=== PATIENT | male | born 2000 | race Caucasian/White ===

== ENCOUNTER 2018-05-03 14:51 | Emergency (ER) | payer MEDICAID ==
--- NOTE | 2018-05-03 16:17 | EDM.PDOC ---
ED HPI GENERAL MEDICAL PROBLEM - General Chief Complaint: Laceration Stated Complaint: CUT ON RIGHT FOOT Time Seen by Provider: 05/03/18 16:00 Source of Information: Reports: Patient History Limitations: Reports: No Limitations - History of Present Illness INITIAL COMMENTS - FREE TEXT/NARRATIVE: 17-year-old male sustained a small laceration on the inside of his right foot 36 hours ago, now feels like his right lower leg is swollen and warm, also thinks there is some erythema on the lateral aspect of the calf. No fevers or chills. No nausea or vomiting, shortness of breath or other symptoms. Severity: Mild Associated Symptoms: Denies: Fever/Chills, Loss of Appetite, Malaise, Nausea/ Vomiting, Shortness of Breath, Weakness - Related Data Allergies Allergy/AdvReac Type Severity Reaction Status Date / Time mushroom Allergy Nausea and Verified 05/03/18 15:59 Vomiting pollen extracts Allergy Cannot Verified 05/03/18 15:59 Remember Home Meds: Home Meds NK [No Known Home Meds] 04/18/18 [History] Past Medical History Psychiatric History: Reports: Depression, Suicidal Ideation - Infectious Disease History Infectious Disease History: Reports: Meningitis Social & Family History - Tobacco Use Smoking Status *Q: Current Every Day Smoker Years of Tobacco use: 8 Packs/Tins Daily: 0.5 - Caffeine Use Caffeine Use: Reports: Coffee, Energy Drinks, Soda - Recreational Drug Use Recreational Drug Use: Yes Recreational Drug Type: Reports: Marijuana/Hashish Recreational Drug Use Frequency: Not Used In Over 6 Months ED ROS GENERAL - Review of Systems Review Of Systems: See Below Constitutional: Denies: Fever, Chills Respiratory: Denies: Shortness of Breath, Cough Cardiovascular: Denies: Chest Pain GI/Abdominal: Denies: Abdominal Pain, Nausea, Vomiting : Reports: No Symptoms Skin: Reports: Erythema Neurological: Denies: Paresthesia ED EXAM, SKIN/RASH Exam: See Below Exam Limited By: No Limitations General Appearance: Alert, No Apparent Distress Respiratory/Chest: No Respiratory Distress Cardiovascular: Regular Rate, Rhythm Extremities: Other (Exam is otherwise limited to the lower extremities. The patient has a 3 cm superficial laceration just behind the medial malleolus of the right ankle. There is a small amount of erythema around the wound. I do not appreciate a significant amount of erythema or swelling of the right lower extremity) Course - Vital Signs Last Recorded V/S: Last Vital Signs Temp 97.0 F 05/03/18 15:57 Pulse 62 05/03/18 15:57 Resp 16 05/03/18 15:57 BP 111/43 L 05/03/18 15:57 Pulse Ox 98 05/03/18 15:57 - Re-Assessments/Exams Free Text/Narrative Re-Assessment/Exam: 05/03/18 16:15 Patient may be developing some early cellulitic symptoms and will be placed on cephalexin 500 mg 3 times a day. Increase activity as tolerated and return if worsening despite treatment. Departure - Departure Time of Disposition: 17:51 Disposition: Home, Self-Care 01 Condition: Good Clinical Impression: Cellulitis of right lower leg - Discharge Information Instructions: Cellulitis, Adult, [id number] Referrals: PCP,None [Primary Care Provider] - Forms: ED Department Discharge Care Plan Goals: Take antibiotic 3 times a day until gone. Elevating the leg may help, and increase activity as tolerated. Keep wound clean while healing. Return in 2-3 days if worsening despite treatment.
== END 2018-05-03 16:45 | disposition home or self-care (01) ==
LOC: JP.ED 14:51
DX: L03.115 Cellulitis of right lower limb (principal); S91.311A Laceration without foreign body, right foot, initial encounter; F17.210 Nicotine dependence, cigarettes, uncomplicated; Z91.018 Allergy to other foods; X58.XXXA Exposure to other specified factors, initial encounter
CPT/HCPCS: 99283